=== PATIENT | male | born 1995 | race Caucasian/White ===

== ENCOUNTER 2017-05-07 12:12 | Emergency (ER) | payer OTHER ==
[2017-05-07 12:49] LABS: Bilirubin Negative (Negative); Blood, Urine Negative (Negative); Glucose, Urine (Dipstick) Negative (Negative); Ketone, Urine Negative (Negative); Nitrite Negative (Negative); Protein, Urine (Dipstick) Negative (Neg-Trace)
[2017-05-07] MEDS ORDERED: Ibuprofen 800 MG TAB ONE (14:08)
--- NOTE | 2017-05-07 14:34 | RAD ---
EXAM: ONE VIEW CHEST: TWO VIEWS ABDOMEN: HISTORY: Right flank pain. COMPARISON: None. FINDINGS: ONE VIEW CHEST: Normal cardiac silhouette. Pulmonary vessels and hilum are normal. No mass. No consolidation. No pneumothorax or osseous abnormalities. ABDOMEN 2 VIEWS: Suture chain in the right lower quadrant. Nonspecific bowel gas pattern. No bowel distention or di latation. No differential air fluid levels. No pneumoperitoneum. IMPRESSION: 1. No acute cardiopulmonary process. 2. Nonspecific bowel gas pattern. POS: [facility]
== END 2017-05-07 14:16 | disposition home or self-care (01) ==
LOC: SCSER 12:12
DX: K59.00 Constipation, unspecified (principal)
CPT/HCPCS: 74022; 81003